=== PATIENT | female | born 1950 | race Caucasian/White ===

== ENCOUNTER 2017-08-21 14:17 | Emergency (ER) | payer MEDICARE, OTHER ==
[2017-08-21] MEDS ORDERED: predniSONE 20 MG TAB ONE (14:36)
== END 2017-08-21 14:40 | disposition home or self-care (01) ==
LOC: BURERS 14:17
DX: J06.9 Acute upper respiratory infection, unspecified (principal); E78.5 Hyperlipidemia, unspecified; Z79.899 Other long term (current) drug therapy
CPT/HCPCS: 99283; J7506

== ENCOUNTER 2017-08-26 23:57 | Emergency (ER) | payer MEDICARE | END 2017-08-27 00:31 | disposition home or self-care (01) | LOC: BURERS 23:57 | DX: E86.0 Dehydration (principal); E78.5 Hyperlipidemia, unspecified; Z87.891 Personal history of nicotine dependence; Z79.899 Other long term (current) drug therapy | CPT/HCPCS: 99283 ==

== ENCOUNTER 2017-10-21 17:59 | Emergency (ER) | payer MEDICARE ==
[2017-10-21] MEDS ORDERED: Dicyclomine 20 MG TAB ONE (18:16)
[2017-10-21] MEDS ORDERED: Ondansetron ODT 4 MG TAB ONE (18:16)
== END 2017-10-21 18:27 | disposition home or self-care (01) ==
LOC: BURERS 17:59
DX: K52.9 Noninfective gastroenteritis and colitis, unspecified (principal); E78.5 Hyperlipidemia, unspecified; Z87.891 Personal history of nicotine dependence; Z79.899 Other long term (current) drug therapy
CPT/HCPCS: 99283; Q0162

== ENCOUNTER 2019-02-05 11:00 | Emergency (ER) | payer MEDICARE ==
[2019-02-05] MEDS ORDERED: Sodium Chloride 0.9% 100 ML ONE (11:35)
[2019-02-05] MEDS ORDERED: cefTRIAXone\\ROCEPHIN 2 GM VIAL ONE (11:35)
[2019-02-05 11:46] LABS: #Basophils 0.1 thou/uL (0.0-0.2); #Eosinphils 0.3 thou/uL (0.0-0.7); #Lymphocytes 3.7 thou/uL (1.20-3.40); #Monocytes 0.6 thou/uL (0.11-0.59); #Neutrophils 4.1 thou/uL (1.40-6.50); %Basophils 1.1 % (0.0-1.0); %Eosinophils 3.3 % (0.0-10.0); %Lymphocytes 41.8 % (21.0-51.0); %Neutrophils 46.8 % (42.0-75.0); Hemoglobin 14.1 g/dL (12.0-16.0); Mean Corpuscular HGB CONC 32.6 g/dL (32.0-36.0); Mean Corpuscular Hemoglobin 30.1 pg (27.0-31.0); Mean Corpuscular Volume 92.1 fL (78.0-98.0); Mean Platelet Volume 8.8 fL (7.4-10.4); Platelet Count 203 thou/uL (130-400); Red Blood Cell (RBC) Count 4.67 mill/uL (4.20-5.40); White Blood Cell (WBC) Count 8.8 thou/uL (4.8-10.8)
[2019-02-05 11:59] LABS: Carbon Dioxide 25 mmol/L (23-31); Chloride 107 mmol/L (98-107); Potassium 4.1 mmol/L (3.5-5.1); Sodium 143 mmol/L (136-145)
[2019-02-05 12:00] LABS: ALT (SGPT) 13 U/L (8-55); AST (SGOT) 19 U/L (5-34); Albumin 4.2 g/dL (3.4-4.8); Alkaline Phosphatase 61 U/L (40-150); BUN (Urea Nitrogen) 12 mg/dL (9.8-20.1); Bilirubin, Total 0.8 mg/dL (0.2-1.2); Calc. Creatinine Clearance 0 mL/min (70-130); Estimated GFR-MDRD 73; Globulin 3.6 g/dL (2.4-3.5); Glucose 97 mg/dL (80-115); Protein, Total 7.8 g/dL (5.8-8.1)
[2019-02-05] MEDS ORDERED: Albuterol Sulfate 1.25 MG/3 ML NEB ONE ×2 (12:00→12:01)
[2019-02-05 12:02] LABS: Anion Gap 15 mmol/L (10-20)
--- NOTE | 2019-02-05 18:39 | RAD ---
PORTABLE CHEST 02/05/19 An AP portable film at 1134 is compared with a 12/16/16 study. There has been no adverse interval change. The heart is normal in size and the lungs are clear. A enedelia cified granuloma is seen in the periphery of the right upper lobe as before. The trachea is midline. IMPRESSION: No acute thoracic finding. POS: HOME
== END 2019-02-05 12:40 | disposition home or self-care (01) ==
LOC: BURERS 11:00
DX: J44.1 Chronic obstructive pulmonary disease with (acute) exacerbation (principal); J06.9 Acute upper respiratory infection, unspecified; E78.5 Hyperlipidemia, unspecified; F43.10 Post-traumatic stress disorder, unspecified; Z87.891 Personal history of nicotine dependence; Z79.899 Other long term (current) drug therapy
CPT/HCPCS: 36415; 71045; 80053; 83880; 84484; 85025; 85379; 87040; 87077; 87149; 93005; 94760; 96365; J0696; J3490

== ENCOUNTER 2022-02-25 11:07 | Outpatient (CLI) | payer MEDICARE | END 2022-02-25 11:08 | disposition home or self-care (01) | LOC: BURRAD 11:07 | PROVIDERS: ATTEND Family Medicine | DX: M25.512 Pain in left shoulder (principal) ==

== ENCOUNTER 2022-02-27 18:11 | Emergency (ER) | payer MEDICARE ==
[2022-02-27] MEDS ORDERED: Ketorolac Tromethamine 30 MG/ML VIAL ONE (18:42)
[2022-02-27] MEDS ORDERED: predniSONE 20 MG TAB ONE ×2 (19:11)
== END 2022-02-27 19:27 | disposition home or self-care (01) ==
LOC: BURERS 18:11
DX: M19.012 Primary osteoarthritis, left shoulder (principal); M19.011 Primary osteoarthritis, right shoulder; M54.50 Low back pain, unspecified; I10 Essential (primary) hypertension; E78.5 Hyperlipidemia, unspecified; J45.909 Unspecified asthma, uncomplicated; Z79.899 Other long term (current) drug therapy
CPT/HCPCS: 96374; J1885; J7512